=== PATIENT | female | born 1930 | race Caucasian/White ===

== ENCOUNTER → 2016-09-23 | Outpatient (CLI) | payer MEDICARE ==
[~2016-09-23] MED LIST: AMITRIPTYLINE25 MG PO; ASPIRIN ADULT L81 M3 PO; ASPIRIN EC325 MG PO; ATORVASTATIN CA20 MG PO; CARAFATE1 GM/10 ML PO; CIPRO 500MG TA500 MG PO; CLOPIDOGREL75 M1 PO; Ciprofloxacin250 MG OR; DIAZEPAM2 MG PO; DIOVAN HCT 25 M1 TA1 PO; ELAVIL GENERIC25 MG PO; FAMILY PHARMAC325 MG PO; FLONASE 50 MCG16 GM; FOSAMAX70 MG PO; HYDROCHLOROTHIA25 M1 PO; HYDROCOT25 MG PO; IMDUR30 MG PO; LEVOTHYROXIN0.075 M1 PO; LORTAB 5/500 501 TAB PO; METOPROLOL SUCC25 M1 PO; NAPROSYN 500MG500 MG PO; PANTOPRAZOLE SO40 MG PO; PHENERGAN 25MG.25 M1 PO; SULINDAC150 MG PO; VENLAFAXINE37.5 MG PO
--- NOTE | 2016-09-24 06:41 | RADIOLOGY REPORT PS360 ---
PROCEDURE: 2-D M-mode and color Doppler study INDICATIONS FOR THE TEST: Chest pain COPD Heart Murmur Tobacco Smoking Palpitations+ Fatigue Syncope Edema+ Hypertension+Diabetes Mellitus Rheumatic Fever SOB+DE PAZ+Obesity+Hyperlipidemia+ Family History HD Additional History CAD, 3 cardiac stents PATIENT INFORMATION HEIGHT: 63 WEIGHT: 171 GENDER: Female B/P: 142/85 2-D/M-MODE INTERPRETATION: 2-D MEASUREMENTS OBSERVED VALUES IN CMS Right Ventricular Dimension (RVDd) 2.3 Interventricular Septum (Thickness)(IVsd) 1.2 Left Ventricular Internal Dimensions(LVIDd) 2.9 Left Ventricular Posterior Wall (Thickness)(LVPWd) 1.2 Aortic Root 2.0 Aortic Cusp Separation 1.7 Left Atrial Dimensions (LAD) 3.7 2D 1. Left atrium is mildly enlarged, left ventricle is normal size, there is mild concentric left ventricular hypertrophy present, visually estimated ejection fraction 55% with no obvious regional wall motion abnormality. 2. The right atrium and right ventricle are normal size and contractility. 3. The aortic valve is minimally thickened and fibrosed consistent with mild aortic sclerosis. 4. The mitral valve leaflets are minimally thickened there is no mitral stenosis. 5. The tricuspid valve is structurally normal. 6. The pulmonic valve is not well visualized. 7. There is anterior echo free space seen, there is no significant posterior pericardial effusion noted. There is a echo lucency seen towards the left ventricle lateral wall whether this is pleural or pericardial effusion is difficult to ascertain from this study. DOPPLER INTERROGATION: Doppler interrogation of the aortic mitral and tricuspid valve reveals presence of mild mitral and tricuspid regurgitation, grade 1 diastolic dysfunction seen without tissue Doppler evidence of raised left atrial pressure. CONCLUSION 1. Mildly enlarged left atrium, normal left ventricular size, visually estimated ejection fraction of 55% with no obvious regional wall motion abnormality, Doppler evidence of grade 1 diastolic dysfunction without evidence of raised left atrial pressure. 2. Mild mitral and tricuspid regurgitation, tricuspid regurgitant jet velocity insufficient for calculation of the right ventricular systolic pressure. 3. Anterior echo free space, without significant posterior pericardial effusion as described above.
== END ==
LOC: RT 12:43
DX: I48.0 Paroxysmal atrial fibrillation (principal); I10 Essential (primary) hypertension; I25.10 Atherosclerotic heart disease of native coronary artery without angina pectoris; E03.9 Hypothyroidism, unspecified; E78.5 Hyperlipidemia, unspecified